=== PATIENT | male | born 1985 | race Caucasian/White ===

== ENCOUNTER → 2020-08-04 | Emergency (ER) | payer MEDICAID ==
[~2020-08-04] VITALS: Ht 177.8 cm; Wt 86.4 kg
[~2020-08-04] MED LIST: OLAN2.5T3 PO; enalapril PO; naloxone 0.4 mg/ml inj IV STA; naloxone 2mg/2ml inj IV STA; trazadone PO; valium PO
[2020-08-04 03:30] LABS: BASOPHILS # (AUTO) 0.1 X10'3 (0-0.2); BASOPHILS % (AUTO) 0.6 % (0-1); EOSINOPHILS # (AUTO) 0.1 X10'3 (0-0.9); EOSINOPHILS % (AUTO) 0.7 % (0-6); HEMATOCRIT 37.7 % (42.0-52.0); HEMOGLOBIN 12.8 g/dl (14.0-17.9); LYMPHOCYTES # (AUTO) 2.2 X10'3 (1.1-4.8); LYMPHOCYTES % (AUTO) 16.8 % (21-51); MEAN CORPUSCULAR HEMOGLOBIN 31.5 PG (27.0-31.0); MEAN CORPUSCULAR HGB CONC 33.9 g/dL (33.0-36.5); MEAN CORPUSCULAR VOLUME 93.1 FL (78-98); MEAN PLATELET VOLUME 6.9 FL (7.4-10.4); MONOCYTES # (AUTO) 0.9 X10'3 (0-0.9); MONOCYTES % (AUTO) 6.9 % (2-12); NEUTROPHILS # (AUTO) 9.9 X10'3 (1.8-7.7); PLATELET COUNT 389 X10'3 (140-440); RED BLOOD COUNT 4.05 X10'6 (4.70-6.10); RED CELL DISTRIBUTION WIDTH 13.3 % (11.5-14.5); WHITE BLOOD COUNT 13.2 X10'3 (4.5-11.0)
[2020-08-04 03:41] LABS: ALANINE AMINOTRANSFERASE 24 U/L (12-78); ALBUMIN/GLOBULIN RATIO 1.1 (1.1-1.5); ALKALINE PHOSPHATASE 65 IU/L (46-116); ANION GAP 5 (8-16); ASPARTATE AMINO TRANSFERASE 24 U/L (10-37); BILIRUBIN,TOTAL 0.5 MG/DL (0.1-1.0); BLOOD UREA NITROGEN 13 MG/DL (7-18); BUN/CREATININE RATIO 12.9 (5.4-32.0); CALCIUM 9.5 MG/DL (8.5-10.1); CHLORIDE 105 MMOL/L (99-107); CREATININE 1.01 MG/DL (0.60-1.10); GLUCOSE 88 MG/DL (70-104); POTASSIUM 3.7 MMOL/L (3.5-5.1); SODIUM 142 MMOL/L (135-145); TOTAL CARBON DIOXIDE 31.9 MMOL/L (24-32); TOTAL PROTEIN 7.5 G/DL (6.4-8.2); eGFR 85 ML/MIN
[2020-08-04 03:44] LABS: ACETAMINOPHEN < 2.0 UG/ML (10-30); ETHANOL < 0.010 GM/DL (0.0-0.010)
[2020-08-04 04:30] LABS: CLARITY,URINE SLIGHTLY CLOUDY (Clear); COLOR,URINE AMBER (Yellow); GLUCOSE, URINE NEGATIVE (Neg); KETONES,URINE TRACE mg/dl (Neg); LEUKOCYTE ESTERASE ,URINE NEGATIVE (Neg); NITRITES, URINE NEGATIVE (Neg); OCCULT BLOOD,URINE TRACE-INTACT (Neg); PH,URINE 5.5 (4.8-8.0); PROTEIN,URINE NEGATIVE (Neg); UROBILINOGEN,URINE 0.2 E.U/dL (0.2-1.0)
[2020-08-04 04:35] LABS: URINE AMPHETAMINE SCREEN POSITIVE (Neg); URINE BARBITUATE SCREEN NEGATIVE (Neg); URINE BENZODIAZEPINES SCREEN NEGATIVE (Neg); URINE CANNABINOID SCREEN POSITIVE (Neg); URINE COCAINE SCREEN NEGATIVE (Neg); URINE METHADONE SCREEN POSITIVE (Neg); URINE OPIATE SCREEN POSITIVE (Neg); URINE PHENCYCLIDINE SCREEN NEGATIVE (Neg)
[2020-08-04 04:41] LABS: UA COLLECTION TYPE CLN CATCH MIDSTREAM
--- NOTE | 2020-08-04 04:45 | NUR ---
Per PA, called pt's mother to come get him for discharge. No answer at mother's number, left message.
[2020-08-04 04:46] LABS: WBC,URINE 0-4 /HPF (0-4)
[2020-08-04 04:49] LABS: BACTERIA,URINE NONE SEEN /HPF (Neg); MUCUS STRANDS MANY /LPF (Neg); SQUAMOUS EPITHELIAL CELL,UR NONE SEEN /LPF (FEW)
[2020-08-04 04:53] LABS: CAL OXALATE CRYSTALS 1+ /HPF (NEGATIVE)
[2020-08-04 04:58] VITALS: BP 126/79
--- NOTE | 2020-08-04 05:20 | NUR ---
Attempted to contact pt's father, number is blocked to receive calls from our number.
== END | disposition home or self-care (01) ==
LOC: ER 02:52
DX: T40.1X1A Poisoning by heroin, accidental (unintentional), initial encounter (principal); F10.129 Alcohol abuse with intoxication, unspecified; R41.82 Altered mental status, unspecified; F15.90 Other stimulant use, unspecified, uncomplicated; Z86.14 Personal history of Methicillin resistant Staphylococcus aureus infection; Z72.89 Other problems related to lifestyle; Z56.0 Unemployment, unspecified; Z79.899 Other long term (current) drug therapy; Y92.89 Other specified places as the place of occurrence of the external cause; Y90.0 Blood alcohol level of less than 20 mg/100 ml
CPT/HCPCS: 36415; 71045; 80053; 80305; 80320; 80329; 81001; 85025; 93005; 96374; 99285; J2310

== ENCOUNTER 2021-03-19 13:40 | Emergency (ER) | payer MEDICAID ==
[~2021-03-19] VITALS: Ht 180.3 cm; Wt 90.9 kg
[~2021-03-19 13:40] MED LIST changes: -naloxone 0.4 mg/ml inj IV STA; -naloxone 2mg/2ml inj IV STA
[2021-03-19 13:59] VITALS: BP 94/59
== END 2021-03-19 18:31 | disposition left against medical advice (07) ==
LOC: ER 13:40
DX: S81.819A Laceration without foreign body, unspecified lower leg, initial encounter (principal); Z53.21 Procedure and treatment not carried out due to patient leaving prior to being seen by health care provider; X58.XXXA Exposure to other specified factors, initial encounter; Y93.89 Activity, other specified; Y92.89 Other specified places as the place of occurrence of the external cause; Y99.8 Other external cause status

== ENCOUNTER 2025-08-22 22:03 | Emergency (ER) | payer MEDICAID ==
[~2025-08-22] VITALS: Ht 180.3 cm; Wt 83.4 kg
[2025-08-22 22:14] VITALS: BP 124/85; PULSE 116; RESP 18; TEMP 98.5; O2SAT 98
--- NOTE | 2025-08-22 23:12 | Physician Documentation ---
History of Present Illness General Chief Complaint: See Chief Complaint Stated Complaint: MH Time Seen by MD: 22:17 Primary Medical Doctor: none History of Present Illness Initial Comments 40-year-old male walked in the emergency department in his socks with request of a sedative. States he would like a sedative to help him sleep. Denies drug use. Does report a vague history of mental health disorders in the past. Unclear what medication he used to take however he does reference Seroquel. Reports that he is also hungry and that he does have a home. No SI or HI. Medication Reconciliation Allergies: Coded Allergies: No Known Allergies (Unverified , 11/25/11) Scheduled Olanzapine (Zyprexa), 2 TABLET PO DAILY, (Reported) [enalapril], 5 MG PO DAILY, (Reported) [trazadone], 100 MG PO HS, (Reported) Scheduled PRN [valium], 10 MG PO TID PRN for for anxiety/agitation, (Reported) Past Medical History Past Medical History: MRSA Abscess, Psychosis Past Surgical History: no surgical history Smoking: Non-Smoker Alcohol Use: Occasionally Drug Use: methamphetamine Lives with: Family Lives In: Home Occupation: unemployed Review of Systems All Other Systems at this time: Reviewed and Negative Psych: Reports: anxiety, emotional problems; Denies: suicidal, homicidal Physical Exam Physical Exam Vital Signs: RN Vital Signs have been reviewed: Yes, Temperature: 98.5, Source: Oral, Heart Rate: 116, Respiratory Rate: 18, BP: 124/85, Pulse Oximetry: 98, Weight: 83.400 Oxygen Flow Rate: 0 General Appearance: alert, WD/WN Pupils/EOM/Fundus: PERRLA Neurologic: oriented x4 Motor / Sensory: no motor deficit, no sensory deficit Psychiatric: normal mood/affect, anxiety, agitation Skin: normal color Progress Results/Orders Results/Orders Vital Signs 08/22/25 22:14 Temp 98.5 Pulse 116 Resp 18 B/P (MAP) 124/85 Pulse Ox 98 O2 Flow Rate 0 Medical Decision Making Additional information obtaine: N/A Findings 40-year-old male who presents to the emergency department requesting sedative to help sleep. Denies recreational drug use. States that he used to receive sedative from another doctor however was not specific. States that he used to have a history of behavioral health issues however was vague nonspecific. Noted not to have shoes on and reports that he is hungry also. Addressing all resources to include nutrition, clothing and anxiolytic. Patient became frustrated with staff and eloped from the emergency department after receiving food. Differential Diagnosis Food insecuriries, behavioral health issues, situational crisis,psycho social crisis, substance abuse. Departure Disposition: LEFT AWOL/ELOPED Impression: Primary Impression: Anxiety Referrals: NO PRIMARY CARE PROVIDER (PCP) Signature Scribe Signature: . Attestation: . CAROLYN STERLING PAC Aug 22, 2025 23:12
== END 2025-08-22 23:12 | disposition left against medical advice (07) ==
LOC: ER 22:04
DX: F41.9 Anxiety disorder, unspecified (principal); F15.90 Other stimulant use, unspecified, uncomplicated; Z86.14 Personal history of Methicillin resistant Staphylococcus aureus infection; Z79.899 Other long term (current) drug therapy; Z56.0 Unemployment, unspecified; Z72.89 Other problems related to lifestyle
CPT/HCPCS: 99282